=== PATIENT | male | born 2000 | race Caucasian/White ===

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

== ENCOUNTER 2018-06-21 20:43 | Emergency (ER) | payer SELFPAY ==
[2018-06-21 20:51] VITALS: BP 131/63
--- NOTE | 2018-06-21 21:47 | UC ---
Throat Pain/Nasal Ramez HPI - HPI Summary HPI Summary: sore throat for 2weeks strep was negative---rx with Ibuprofen now has worsening pain and swelling - History of Current Complaint Chief Complaint: UCRespiratory Stated Complaint: SORE THROAT Time Seen by Provider: 06/21/18 20:45 Hx Obtained From: Patient Onset/Duration: Gradual Onset, Lasting Weeks - 2, Still Present Pain Intensity: 6 Pain Scale Used: 0-10 Numeric Cough: None Associated Signs & Symptoms: Positive: Negative - Allergies/Home Medications Allergies/Adverse Reactions: Allergies Allergy/AdvReac Type Severity Reaction Status Date / Time bee venom protein (honey bee) Allergy Anaphylatic Verified 06/21/18 20:51 Shock Home Medications: Home Medications NK [No Home Medications Reported] 06/21/18 [History Confirmed 06/21/18] PMH/Surg Hx/FS Hx/Imm Hx Previously Healthy: Yes - Surgical History Surgical History: None - Family History Known Family History: Positive: None - Social History Occupation: Employed Full-time Lives: With Family Alcohol Use: Occasionally Substance Use Type: None Smoking Status (MU): Current Some Day Smoker Have You Smoked in the Last Year: No - Immunization History Vaccination Up to Date: Yes Review of Systems Constitutional: Negative Skin: Negative Eyes: Negative ENT: Sore Throat Respiratory: Negative Cardiovascular: Negative Gastrointestinal: Negative Genitourinary: Negative Motor: Negative Neurovascular: Negative Musculoskeletal: Negative Neurological: Negative Psychological: Negative Is Patient Immunocompromised?: No All Other Systems Reviewed And Are Negative: Yes Physical Exam Triage Information Reviewed: Yes Appearance: Well-Nourished, Ill-Appearing, Pain Distress Vital Signs: Initial Vital Signs Temp 98.7 F 06/21/18 20:48 Pulse 62 06/21/18 20:48 Resp 12 06/21/18 20:48 BP 131/63 06/21/18 20:48 Pulse Ox 98 06/21/18 20:48 Vital Signs Reviewed: Yes Eye Exam: Normal Eyes: Positive: Conjunctiva Clear ENT Exam: Normal ENT: Positive: Normal ENT inspection, Hearing grossly normal, Pharyngeal erythema, Nasal congestion, TMs normal, Tonsillar swelling, Trismus - slight, Hoarse voice, Uvula midline - slight deviation. Negative: Muffled voice, Dental tenderness, Sinus tenderness Dental Exam: Normal Neck exam: Normal Neck: Positive: Supple, Nontender Respiratory Exam: Normal Respiratory: Positive: Chest non-tender, Lungs clear, Normal breath sounds, No respiratory distress, No accessory muscle use Cardiovascular Exam: Normal Cardiovascular: Positive: RRR, No Murmur, Pulses Normal, Brisk Capillary Refill Musculoskeletal Exam: Normal Musculoskeletal: Positive: Strength Intact, ROM Intact, No Edema Neurological Exam: Normal Neurological: Positive: Alert, Muscle Tone Normal Psychological Exam: Normal Skin Exam: Normal Diagnostics - Laboratory Diagnostic Studies Completed/Ordered: RST (-) Throat Pain/Nasal Course/Dx - Course Assessment/Plan: d/c from urgent care and go directly to the emergency department at [facility] for additional care - Differential Dx/Diagnosis Provider Diagnoses: peritonsilliar abscess Discharge - Sign-Out/Discharge Documenting (check all that apply): Patient Departure - Discharge Plan Condition: Fair Disposition: HOME-RECOMMEND TO ED Patient Education Materials: Peritonsillar Abscess (ED), Abscess (ED) Referrals: Ilya Melendrez MD [Primary Care Provider] - Additional Instructions: Go directly to the ermergency department at [facility] for further care - Billing Disposition and Condition Condition: FAIR Disposition: Home-Recommend to ED
== END 2018-06-21 22:16 | disposition home health service (06) ==
LOC: UCEAST 20:43
DX: J36 Peritonsillar abscess (principal); F17.210 Nicotine dependence, cigarettes, uncomplicated
CPT/HCPCS: 87651; 99212; G0463

== ENCOUNTER 2018-06-21 22:32 | Emergency (ER) | payer SELFPAY ==
[2018-06-21] MEDS ORDERED: Clindamycin 600 MG IVPREMIX(* 600 MG/50 ML SDV IV ONE (22:58)
[2018-06-21] MEDS ORDERED: Ketorolac INJ* 30 MG/ML 1 ML VIAL IV PUSH ONE (22:58)
[2018-06-21] MEDS ORDERED: methylPREDNISolone 125 MG* 2 ML VIAL IV ONE (22:58)
--- NOTE | 2018-06-21 23:03 | ED ---
Throat Pain/Nasal Congestion - HPI Summary HPI Summary: Fit and healthy 17 y.o. male patient presents from the with concerns for peritonsillar abscess, Lt. He reports he's had a sore and swollen throat that started 2 weeks ago. He was seen at [address] [place] [address] when this started and instructed to take ibuprofen which helped. His symptoms worsened the past 2 days and he [facility]. He's been taking 400 mg of ibuprofen each morning and that was his last dose of medication today. He admits to a history of tonsillitis where he usually receives ibuprofen, steroids and an antibiotic. As mentioned above, he has only been taking ibuprofen since this last bout. No history of peritonsillar abscess nor known strep or mono. Denies drainage into mouth but does admits Lt side of throat is worse than Lt. No pain radiating into ears. His rapid strep test at [facility] was negative tonight. He reports he's been eating, drinking and breathing well - went rafting today without difficulty. Denies chest pain, shortness of breath, cough, neck pain or stiffness, headache, nausea, vomiting, diarrhea, fatigue. - History of Current Complaint Chief Complaint: EDThroatPain Time Seen by Provider: 06/21/18 22:35 Hx Obtained From: Patient - Allergies/Home Medications Allergies/Adverse Reactions: Allergies Allergy/AdvReac Type Severity Reaction Status Date / Time bee venom protein (honey bee) Allergy Anaphylatic Verified 06/21/18 20:51 Shock PMH/Surg Hx/FS Hx/Imm Hx Previously Healthy: Yes Endocrine/Hematology History: Denies: Hx Anticoagulant Therapy, Autoimmune Disease Cardiovascular History: Reports: Other Cardiovascular Problems/Disorders - cardiac murmur - no residual effects Respiratory History: Denies: Hx Asthma EENT History: Reports: Hx Tonsillitis Infectious Disease History: No Infectious Disease History: Denies: Hx Clostridium Difficile, Hx Hepatitis, Hx Human Immunodeficiency Virus (HIV), Hx of Known/Suspected MRSA, Hx Shingles, Hx Tuberculosis, Hx Known/ Suspected VRE, Hx Known/Suspected VRSA, History Other Infectious Disease, Traveled Outside the [place] in Last 30 Days - Family History Known Family History: Positive: None - Social History 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 Negative: Epistaxis, Dental Pain, Ear Ache, Nasal Discharge Cardiovascular: Negative Respiratory: Negative Gastrointestinal: Negative Positive: no symptoms reported Musculoskeletal: Negative Skin: Negative Neurological: Negative Psychological: Normal All Other Systems Reviewed And Are Negative: Yes Physical Exam Triage Information Reviewed: Yes Vital Signs On Initial Exam: Initial Vitals Temp Pulse Resp BP Pulse Ox 98.4 F 51 16 124/65 100 06/21/18 22:34 06/21/18 22:34 06/21/18 22:34 06/21/18 22:34 06/21/18 22:34 Vital Signs Reviewed: Yes Appearance: Positive: Well-Appearing, No Pain Distress, Well-Nourished Skin: Positive: Warm, Skin Color Reflects Adequate Perfusion, Dry Head/Face: Positive: Normal Head/Face Inspection - no facial/neck swelling or asymmetry Eyes: Positive: Normal, EOMI, Conjunctiva Clear. Negative: Conjunctiva Inflammed, Discharge ENT: Positive: Hearing grossly normal, Pharyngeal erythema, TMs normal, Tonsillar swelling, Tonsillar exudate - scant B/L, Muffled voice - very subtle, Uvula midline, Other - Lt soft palate is mildly more edematous than Rt - no pusutles, no d/c - apears to be tracking from Lt tonsil; handing secretions well - breathing and speaking w/o difficulty. Negative: Nasal congestion, Nasal drainage, Trismus, Hoarse voice Neck: Positive: Supple, No Lymphadenopathy, Tenderness @ - mild submandibular TTP Respiratory/Lung Sounds: Positive: Clear to Auscultation, Breath Sounds Present. Negative: Stridor, Tracheal Deviation, Wheezes, Unable to speak in full sentences, Fatigue Cardiovascular: Positive: RRR, Murmur - garde 1, S1, S2 Abdomen Description: Positive: Nontender, No Organomegaly, Soft Bowel Sounds: Positive: Present Musculoskeletal: Positive: Normal, Strength/ROM Intact Neurological: Positive: Normal, Sensory/Motor Intact, Alert, Oriented to Person Place, Time, CN Intact II-III Psychiatric: Positive: Normal Diagnostics - Vital Signs Vital Signs Temp Pulse Resp BP Pulse Ox 06/21/18 22:34 98.4 F 51 16 124/65 100 - Laboratory Result Diagrams: 06/21/18 23:00 06/21/18 23:00 Lab Statement: Any lab studies that have been ordered have been reviewed, and results considered in the medical decision making process. Re-Evaluation - Re-Evaluation First Eval Change: Improved EENT Course/Dx - Course Course Of Treatment: Pt appears to have either early signs of peritonsilar abscess or cellulitis of the soft palate from inflammed tonsils for the past 2 weeks. He has been taking 400mg of ibuprofen in the mornings only - worse on Lt past 2 days. Labs reveal WBC's 12 - normal CRP and lactic - afebrile. Provided w/ toradol, solumedrol, clindamycin and IVF while here. He is able to breath easily and swallow w/o difficulty. Scant purulent drainage observed along medial aspect of Lt tonsil - possibly draining an abscess on his own. Mom is present as well. Explained he may be d/c'd home and monitor sx - if difficulty breathing, swallowing, fever, chills, CANTRELL, neck stiffness present, he will return to ED - Diagnoses Provider Diagnoses: Acute tonsillitis Discharge - Sign-Out/Discharge Documenting (check all that apply): Patient Departure - Discharge Plan Condition: Stable Disposition: HOME Prescriptions: Clindamycin HCl 300 mg PO TID #30 capsule Ibuprofen TAB* [Motrin TAB* 800 MG] 800 mg PO Q8HR PRN #20 tab PRN Reason: Pain predniSONE TAB* [Deltasone TAB*] 50 mg PO DAILY #5 tab Patient Education Materials: Peritonsillar Abscess (ED), Tonsillitis (ED) Referrals: Anatoly Shen MD [Medical Doctor] - Additional Instructions: Warm salt water gargles - this will encourage drainage if there is an abscess present Stay hydrated Take medications as directed No smoking or drinking alcohol until cleared to do so by ENT provider Follow-up with ENT Sunday - call to schedule an appointment *If in the meantime you develop fever, chills, difficulty breathing or swalling , headache, neck pain/stiffness, return to the ED - Billing Disposition and Condition Condition: STABLE Disposition: Home
[2018-06-21 23:10] LABS: ABS Basophils 0.1 10^3/ul (0-0.2); ABS Eosinophils 0.3 10^3/ul (0-0.6); ABS Lymphocytes 2.1 10^3/ul (1.0-4.8); ABS Monocytes 1.2 10^3/ul (0-0.8); ABS Neutrophils 8.7 10^3/ul (1.5-7.7); ABS Nucleated RBC 0 10^3/ul; Eosinophil % 2.7 % (0-6); Hematocrit 40 % (42-52); Hemoglobin 13.4 g/dl (14.0-18.0); Lymphocyte % 17.2 % (25-47); Mean Corpuscular HGB Conc 34 g/dl (31-36); Mean Corpuscular Hemoglobin 29 pg (27-31); Mean Corpuscular Volume 85 fL (80-94); Mean Platelet Volume 9.2 um3 (7.4-10.4); Nucleated Red Blood Cells % 0; Platelet Count 219 10^3/ul (150-450); Red Blood Count 4.63 10^6/ul (4.00-5.40); Red Cell Distribution Width 14 % (10.5-15); White Blood Count 12.5 10^3/ul (3.5-10.8)
[2018-06-22] MEDS ORDERED: NS 0.9% 1000 ML* 1,000 ML IV ONE (00:03)
[2018-06-22] MEDS ORDERED: Clindamycin CAP* 150 MG PO ONE (01:08)
[2018-06-22 01:29] VITALS: BP 108/53
== END 2018-06-22 01:28 | disposition home or self-care (01) ==
LOC: ED 22:32
DX: J03.90 Acute tonsillitis, unspecified (principal); J02.9 Acute pharyngitis, unspecified; Z72.0 Tobacco use
CPT/HCPCS: 36415; 80053; 83605; 85025; 86140; 86308; 96374; 96375; 99283; A9270-GY; J1885; J2930

== ENCOUNTER 2018-07-12 09:04 | Emergency (ER) | payer SELFPAY ==
[2018-07-12 09:11] VITALS: BP 107/50
--- NOTE | 2018-07-12 09:19 | UC ---
Throat Pain/Nasal Ramez HPI - HPI Summary HPI Summary: The patient is a 17-year-old male with a sore throat and swollen tonsils. He was able to tolerate food and liquids yesterday. Today his symptoms are worse. He has no headache. Eyes no myalgias. He has no nausea vomiting or diarrhea. Denies any abdominal pain. - History of Current Complaint Chief Complaint: UCGeneralIllness Stated Complaint: SORE THROAT Time Seen by Provider: 07/12/18 09:18 Hx Obtained From: Patient Onset/Duration: Gradual Onset, Lasting Days Severity: Moderate Pain Intensity: 7 - declines analgesic Pain Scale Used: 0-10 Numeric Associated Signs & Symptoms: Positive: Dysphagia - Epiglottits Risk Factors Epiglottis Risk Factors: Negative - Allergies/Home Medications Allergies/Adverse Reactions: Allergies Allergy/AdvReac Type Severity Reaction Status Date / Time bee venom protein (honey bee) Allergy Anaphylatic Verified 07/12/18 09:12 Shock PMH/Surg Hx/FS Hx/Imm Hx Previously Healthy: Yes Other History Of: Negative For: Anticoagulant Therapy - Surgical History Surgical History: None - Family History Known Family History: Positive: Hypertension - Social History Alcohol Use: Weekly Substance Use Type: None Smoking Status (MU): Current Some Day Smoker Have You Smoked in the Last Year: No - Immunization History Vaccination Up to Date: Yes Review of Systems Constitutional: Negative Skin: Negative Eyes: Negative ENT: Sore Throat Respiratory: Negative Cardiovascular: Negative Gastrointestinal: Negative Genitourinary: Negative Motor: Negative Neurovascular: Negative Musculoskeletal: Negative Neurological: Negative Psychological: Negative Is Patient Immunocompromised?: No All Other Systems Reviewed And Are Negative: Yes Physical Exam Triage Information Reviewed: Yes Appearance: Well-Appearing, No Pain Distress, Well-Nourished Vital Signs: Initial Vital Signs Temp 98 F 07/12/18 09:08 Pulse 68 07/12/18 09:08 Resp 17 07/12/18 09:08 BP 107/50 07/12/18 09:08 Pulse Ox 100 07/12/18 09:08 Vital Signs Reviewed: Yes Eyes: Positive: Conjunctiva Clear ENT: Positive: Pharyngeal erythema, Tonsillar swelling, Tonsillar exudate, Uvula midline. Negative: Trismus, Muffled voice, Hoarse voice Neck: Positive: Supple, Enlarged Nodes @ - ant cerv nodes. Negative: Nontender Respiratory Exam: Other Respiratory: Positive: Lungs clear, Normal breath sounds, No respiratory distress, No accessory muscle use Cardiovascular: Positive: RRR, No Murmur Musculoskeletal: Positive: ROM Intact, No Edema Neurological: Positive: Alert Psychological Exam: Normal Skin Exam: Normal Diagnostics - Laboratory Diagnostic Studies Completed/Ordered: strep (-) Throat Pain/Nasal Course/Dx - Differential Dx/Diagnosis Provider Diagnoses: acute exudative tonsillitis Discharge - Sign-Out/Discharge Documenting (check all that apply): Patient Departure - Discharge Plan Condition: Stable Disposition: HOME Prescriptions: Cephalexin CAP* [Keflex CAP*] 500 mg PO BID #20 cap predniSONE [Prednisone 20 MG TAB] 60 mg PO DAILY #9 tab Patient Education Materials: Tonsillitis (ED) Referrals: Ilya Melendrez MD [Primary Care Provider] - 3 Days (if not better) - Billing Disposition and Condition Condition: STABLE Disposition: Home
== END 2018-07-12 09:40 | disposition home or self-care (01) ==
LOC: UCEAST 09:04
DX: J03.90 Acute tonsillitis, unspecified (principal); Z91.030 Bee allergy status; Z72.0 Tobacco use
CPT/HCPCS: 87651; 99212; G0463

== ENCOUNTER 2018-07-25 15:33 | Emergency (ER) | payer OTHER ==
[2018-07-25 15:49] VITALS: BP 130/69
--- NOTE | 2018-07-25 16:15 | UC ---
Respiratory Complaint HPI - HPI Summary HPI Summary: A 17 y/o male presents to [facility] c/o frequent swollen tonsils reaching 4/10 in severity. As per triage, "Tonsils swollen since yesterday. in past four months this has happened three times. Also, acid reflux". According to the patient, he has been experiencing swollen tonsils since yesterday. He noted that this has been a recurrent issue since he was 16 years old, however in the past 3 months, he has had 3-4 outbreaks. Additional symptoms include left ear pain, denies any fatigue, fever or chills. Patient did see and ENT physician, but at that point in time, it was not enough to consider a tonsillectomy. 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 SHx of jonathon. Patient has been treated with steroids such as Prednisone before. - History of Current Complaint Chief Complaint: UCRespiratory Stated Complaint: THROAT PAIN Time Seen by Provider: 07/25/18 15:55 Hx Obtained From: Patient Onset/Duration: Sudden Onset, Lasting Days, Still Present Timing: Constant Severity Initially: Moderate Severity Currently: Moderate Pain Intensity: 4 Pain Scale Used: 0-10 Numeric Aggravating Factors: Nothing Alleviating Factors: Nothing Associated Signs And Symptoms: Positive: Negative - Allergies/Home Medications Allergies/Adverse Reactions: Allergies Allergy/AdvReac Type Severity Reaction Status Date / Time bee venom protein (honey bee) Allergy Anaphylatic Verified 07/25/18 15:50 Shock PMH/Surg Hx/FS Hx/Imm Hx Endocrine History: Diabetes - NEGATIVE Cardiovascular History: Hypertension - NEGATIVE Respiratory History: Asthma - NEGATIVE Other History Of: Negative For: Anticoagulant Therapy - Surgical History Surgical History: None Surgery Procedure, Year, and Place: As per patient, no prior surgeries. - Family History Known Family History: Positive: Hypertension Negative: Diabetes - Social History Alcohol Use: Weekly Alcohol Amount: once a week Substance Use Type: None Smoking Status (MU): Current Some Day Smoker Have You Smoked in the Last Year: No - Immunization History Vaccination Up to Date: Yes Review of Systems Constitutional: Negative Skin: Negative Eyes: Negative ENT: Other - Swollen tonsils. Respiratory: Negative Cardiovascular: Negative Gastrointestinal: Negative Genitourinary: Negative Motor: Negative Neurovascular: Negative Musculoskeletal: Negative Neurological: Negative Psychological: Negative Is Patient Immunocompromised?: No All Other Systems Reviewed And Are Negative: Yes Physical Exam - Summary Physical Exam Summary: General: well-appearing, no pain distress Skin: warm, color reflects adequate perfusion, dry Head: normal Eyes: EOMI, FELIX ENT: 2+ tonsil, erythematous, uvula midline, positive anterior cervical adenopathy Neck: supple, nontender Respiratory: CTA, breath sounds present Cardiovascular: RRR Abdomen: soft, nontender Bowel: present Musculoskeletal: normal, strength/ROM intact Neurological: sensory/motor intact, A&O x3 Psychological: affect/mood appropriate Triage Information Reviewed: Yes Vital Signs: Initial Vital Signs Temp 99.2 F 07/25/18 15:44 Pulse 89 07/25/18 15:44 Resp 18 07/25/18 15:44 BP 130/69 07/25/18 15:44 Pulse Ox 96 07/25/18 15:44 Vital Signs Reviewed: Yes UC Diagnostic Evaluation - Laboratory O2 Sat by Pulse Oximetry: 96 Respiratory Course/Dx - Course Course Of Treatment: Medications reviewed. Allergies noted. DISCUSSED VIRAL VERSES BACTERIAL INFECTION AND THE ROLE OF ANTIBIOTICS. THE PATIENT WISHES TO BE ON ANTIBIOTICS AT THIS TIME. REFERAL TO ENT FOR RECURRENT TONSILLITIS. - Differential Dx/Diagnosis Provider Diagnoses: TONSILLITIS Discharge - Sign-Out/Discharge Documenting (check all that apply): Patient Departure - DISCHARGE All imaging exams completed and their final reports reviewed: No Studies - Discharge Plan Condition: Stable Disposition: HOME Prescriptions: Penicillin VK 500 MG TAB(NF) [Penicillin VK 500 mg Tab] 500 mg PO QID #40 tab predniSONE TAB* [Deltasone 20 MG TAB*] 40 mg PO DAILY #10 tab Patient Education Materials: Tonsillitis (ED) Referrals: [facility] [Provider Group] Jamal Gonzáles MD [Medical Doctor] - Ilya Melendrez MD [Primary Care Provider] - Additional Instructions: FOLLOW UP WITH ENT. GET RECHECKED FOR ANY WORSENING OF YOUR CONDITION OR QUESTIONS OR CONCERNS. - Billing Disposition and Condition Condition: STABLE Disposition: Home - Attestation Statements Document Initiated by Scribe: Yes Documenting Scribe: López Gr Provider For Whom Scribe is Documenting (Include Credential): Ilya Torres MD Scribe Attestation: López Cordova scribed for Ilya Torres MD on 07/25/18 at 1751. Scribe Documentation Reviewed: Yes Provider Attestation: The documentation as recorded by the scribe, López Gr accurately reflects the service I personally performed and the decisions made by me, Ilya Torres MD
== END 2018-07-25 16:26 | disposition home or self-care (01) ==
LOC: UCEAST 15:33
DX: J03.91 Acute recurrent tonsillitis, unspecified (principal); R59.0 Localized enlarged lymph nodes; H92.02 Otalgia, left ear; K21.9 Gastro-esophageal reflux disease without esophagitis; F17.200 Nicotine dependence, unspecified, uncomplicated; Z91.030 Bee allergy status; Z98.890 Other specified postprocedural states
CPT/HCPCS: 87651; 99212; G0463

== ENCOUNTER 2018-08-09 14:44 | Emergency (ER) | payer OTHER ==
[2018-08-09 14:56] VITALS: BP 115/60
--- NOTE | 2018-08-09 15:16 | UC ---
Throat Pain/Nasal Ramez HPI - HPI Summary HPI Summary: 17 yo male presents with sore throat and tonsil swelling. He tells me that he has a hx of tonsillitis and has an appt set up with ENT for 09/05/18 to discuss having tonsils removed. Pain with swallowing. He is able to eat and drink. Denies fever, chills, SOB, chest pain, rash. - History of Current Complaint Chief Complaint: UCRespiratory Stated Complaint: THROAT COMPLAINT Time Seen by Provider: 08/09/18 15:16 Hx Obtained From: Patient Onset/Duration: Sudden Onset Severity: Mild Pain Intensity: 4 Pain Scale Used: 0-10 Numeric - Allergies/Home Medications Allergies/Adverse Reactions: Allergies Allergy/AdvReac Type Severity Reaction Status Date / Time bee venom protein (honey bee) Allergy Anaphylatic Verified 08/09/18 14:56 Shock Home Medications: Home Medications Ibuprofen 800 mg PO ONCE PRN 08/09/18 [History Confirmed 08/09/18] PMH/Surg Hx/FS Hx/Imm Hx - Additional Past Medical History Additional PMH: None Other History Of: Negative For: Anticoagulant Therapy - Surgical History Surgical History: None Surgery Procedure, Year, and Place: As per patient, no prior surgeries. - Family History Known Family History: Positive: None, Hypertension Negative: Diabetes - Social History Occupation: Student Lives: Dormitory/Roommates Alcohol Use: Weekly Alcohol Amount: once a week Substance Use Type: None Smoking Status (MU): Former Smoker Have You Smoked in the Last Year: No - Immunization History Vaccination Up to Date: Yes Review of Systems Constitutional: Negative Skin: Negative Eyes: Negative ENT: Sore Throat Respiratory: Negative Cardiovascular: Negative Gastrointestinal: Negative Neurovascular: Negative Neurological: Negative Psychological: Negative All Other Systems Reviewed And Are Negative: Yes Physical Exam - Summary Physical Exam Summary: GENERAL: NAD. WDWN. No pain distress. SKIN: No rashes, sores, lesions, or open wounds. HEENT: Head: AT/NC Eyes: Conjunctiva clear without inflammation or discharge. Ears: Hearing grossly normal. TMs intact, no bulging, erythema, or edema. Nose: Nasal mucosa pink and moist. NTTP maxillary and frontal sinus. Throat: Posterior oropharynx mild erythema and 3+ tonsillar enlargement. No exudates. Uvula midline. No hoarse voice or muffled voice. NECK: Supple. Moderate tonsillar LAD. CHEST: CTAB. No r/r/w. No accessory muscle use. Breathing comfortably and in no distress. CV: RRR. Without m/r/g. Pulses intact. Cap refill <2seconds NEURO: Alert. PSYCH: Age appropriate behavior. Triage Information Reviewed: Yes Vital Signs: Initial Vital Signs Temp 100 F 08/09/18 14:52 Pulse 98 08/09/18 14:52 Resp 18 08/09/18 14:52 BP 115/60 08/09/18 14:52 Pulse Ox 99 08/09/18 14:52 Vital Signs Reviewed: Yes Throat Pain/Nasal Course/Dx - Course Course Of Treatment: Tonsillitis. Rx for clindamycin and prednisone - f/u with ENT as soon as possible. To ED for worsening symptoms. - Differential Dx/Diagnosis Provider Diagnoses: Tonsillitis Discharge - Sign-Out/Discharge Documenting (check all that apply): Patient Departure All imaging exams completed and their final reports reviewed: No Studies - Discharge Plan Condition: Stable Disposition: HOME Prescriptions: Clindamycin HCl 150 mg PO TID #21 capsule predniSONE TAB* [Deltasone 20 MG TAB*] 60 mg PO DAILY #17 tab Patient Education Materials: Peritonsillar Abscess (DC), Tonsillitis (ED) Referrals: Ilya Melendrez MD [Primary Care Provider] - Additional Instructions: If you develop a fever, shortness of breath, chest pain, new or worsening symptoms - please call your PCP or go to the ED. 1) If you develop trouble breathing or eating/drinking - please go to the ER for further evaluation 2) Please keep your appointment with ENT - Billing Disposition and Condition Condition: STABLE Disposition: Home
== END 2018-08-09 15:35 | disposition home or self-care (01) ==
LOC: UCEAST 14:44
DX: J03.90 Acute tonsillitis, unspecified (principal); Z87.891 Personal history of nicotine dependence
CPT/HCPCS: 99212; G0463

== ENCOUNTER 2018-08-30 17:50 | Emergency (ER) | payer OTHER ==
[2018-08-30 18:07] VITALS: BP 120/72
--- NOTE | 2018-08-30 18:22 | UC ---
Throat Pain/Nasal Ramez HPI - HPI Summary HPI Summary: 18 y/o male presents to the urgent care c/o swollen tonsils for the past 3 days. Pt reprots PMX of recurrent tonsillitis. P tis schedule for tonsillectomy on 08/05/2018 w/ a [facility] ENT, he thinks is Dr Shen. Pt has gargles w/ salt water and Ibuprifen PO to alleviate symptoms. Pt took 1000mg PO this morning at 0700AM for pain. Pain is sharp w/ swallowing 05/05 now. Pt states for the past 4 months he has had tonsillitis probably 5X. He usually is Rx Clindamycin PO and Prednisone PO. In May/2018 he was in the ER w/ possible tonsilar abscess since he waited too long to get antibiotics. Pt denies fever, SOB, chest pain, abdominal pain, N/V/D, muffle voice or hoarseness. - History of Current Complaint Chief Complaint: UCGeneralIllness Stated Complaint: SWOLLEN TONSILS Time Seen by Provider: 08/30/18 18:19 Hx Obtained From: Patient Onset/Duration: Gradual Onset, Lasting Days - 3 days, Still Present, Worse Since - today Pain Intensity: 6 Pain Scale Used: 0-10 Numeric Cough: None Associated Signs & Symptoms: Positive: Dysphagia - Epiglottits Risk Factors Epiglottis Risk Factors: Negative - Allergies/Home Medications Allergies/Adverse Reactions: Allergies Allergy/AdvReac Type Severity Reaction Status Date / Time bee venom protein (honey bee) Allergy Anaphylatic Verified 08/30/18 18:06 Shock PMH/Surg Hx/FS Hx/Imm Hx Previously Healthy: Yes Other Respiratory History: recurrent tonsillitis Other History Of: Negative For: Anticoagulant Therapy - Surgical History Surgical History: None Surgery Procedure, Year, and Place: As per patient, no prior surgeries. - Family History Known Family History: Positive: Hypertension Negative: Diabetes - Social History Occupation: Student Lives: With Family Alcohol Use: Weekly Alcohol Amount: once a week Substance Use Type: None Smoking Status (MU): Former Smoker Have You Smoked in the Last Year: No - Immunization History Vaccination Up to Date: Yes Review of Systems Constitutional: Negative Skin: Negative Eyes: Negative ENT: Sore Throat, Other - B/L swollen tonsils Respiratory: Negative Cardiovascular: Negative Gastrointestinal: Negative Genitourinary: Negative Motor: Negative Neurovascular: Negative Musculoskeletal: Negative Neurological: Negative Psychological: Negative Is Patient Immunocompromised?: No All Other Systems Reviewed And Are Negative: Yes Physical Exam - Summary Physical Exam Summary: VITAL SIGNS: Reviewed. GENERAL: Patient is a well developed and nourished male who is sitting comfortable in the examining table. Patient is not in any acute respiratory distress. HEAD AND FACE: No signs of trauma. No ecchymosis, hematomas or skull depressions. No sinus tenderness. EYES: PERRLA, EOMI x 2, No injected conjunctiva, no nystagmus. No photophobia. EARS: Hearing grossly intact. Ear canals and tympanic membranes are within normal limits. MOUTH: Positive pharynx with erythema, mild exudates, no palatal petechiae. B/L tonsillar enlargement with exudate. Uvula in midline. NECK: Supple, trachea is midline, Positive anterior cervical lymphadenopathy, no JVD, no carotid bruit, no c-spine tenderness, neck with full ROM. No meningeal signs, no Kernig's or brudzinskis signs. CHEST: Symmetric, no tenderness at palpation LUNGS: Clear to auscultation bilaterally. No wheezing or crackles. CVS: Regular rate and rhythm, S1 and S2 present, no murmurs or gallops appreciated. ABDOMEN: Soft, non-tender. No signs of distention. No rebound no guarding, and no masses palpated. Bowel sounds are normal. EXTREMITIES: FROM in all major joints, no edema, no cyanosis or clubbing. NEURO: Alert and oriented x 3. No acute neurological deficits. Speech is normal and follows commands. SKIN: Dry and warm Triage Information Reviewed: Yes Vital Signs: Initial Vital Signs Temp 99.8 F 08/30/18 17:59 Pulse 82 08/30/18 17:59 Resp 16 08/30/18 17:59 BP 120/72 08/30/18 17:59 Pulse Ox 99 08/30/18 17:59 Throat Pain/Nasal Course/Dx - Course Course Of Treatment: 18 y/o male presents to the urgent care c/o swollen tonsils for the past 3 days. Pt reprots PMX of recurrent tonsillitis. P tis schedule for tonsillectomy on 08/05/2018 w/ a [facility] ENT, he thinks is Dr Shen. Pt has gargles w/ salt water and Ibuprifen PO to alleviate symptoms. Pt took 1000mg PO this morning at 0700AM for pain. Pain is sharp w/ swallowing 05/05 now. Pt states for the past 4 months he has had tonsillitis probably 5X. He usually is Rx Clindamycin PO and Prednisone PO. In May/2018 he was in the ER w/ possible tonsilar abscess since he waited too long to get antibiotics. Pt denies fever, SOB, chest pain, abdominal pain, N/V/D, muffle voice or hoarseness. Pt w/ tonsillitis on examianation. Rapdi strep ordered: negative. Pt's symptoks discussed w/ Dr Parker and she agreed to Rx Clindamycin PO and Prednisone PO. Medication sent to pharmacy as directed below. Pt strongly advised to stop taking Ibuprofen since surgery is on 2017. Advised to f/u w/ his ENT Dr Shen for further managment if no improvement of symptoms. d/C instructions explained. Pt understood and agreed w / plan of care. Left clinic hemodynamically stable. - Differential Dx/Diagnosis Differential Diagnosis/HQI/PQRI: Laryngitis, Mononucleosis, Peritonsillar Abscess, Pharyngitis, Tonsillitis Provider Diagnoses: 1- Acute tonsillitis Discharge - Sign-Out/Discharge Documenting (check all that apply): Patient Departure - D/C home All imaging exams completed and their final reports reviewed: No Studies - Discharge Plan Condition: Stable Disposition: HOME Prescriptions: Clindamycin Cap(NF) [Clindamycin Cap 300 mg Cap(NF)] 300 mg PO TID #30 cap predniSONE TAB* [Deltasone 20 MG TAB*] 20 mg PO DAILY #11 tab Patient Education Materials: Tonsillitis (ED) Referrals: Ilya Melendrez MD [Primary Care Provider] - 2 Days Additional Instructions: 1- Please take the full course of the antibiotic to avoid resistance. 2- Please take Prednisone PO taper dose ad directed to alleviate swelling 3-Please take Tylenol PO q6-8hrs prn as instructed after meals to alleviate pain and swelling. Increase fluid intake, eat well, rest and avoid strenuous exercise. Please avoid taking any Ibuprofen since your Tonsillectomy is on 09/2018. 4-Please f/u w/ your [facility] ENT Dr Shen for further management on your Tonsillitis - Billing Disposition and Condition Condition: STABLE Disposition: Home - Attestation Statements Provider Attestation: I was available for consult. This patient was seen by the PABLO. The patient was not presented to, seen by, or examined by me. -Laya
== END 2018-08-30 18:50 | disposition home or self-care (01) ==
LOC: UCEAST 17:50
DX: J03.90 Acute tonsillitis, unspecified (principal); Z91.030 Bee allergy status; Z87.891 Personal history of nicotine dependence
CPT/HCPCS: 87651; 99212; G0463

== ENCOUNTER 2019-07-25 07:15 | Emergency (ER) | payer BC, OTHER ==
[2019-07-25 07:27] VITALS: BP 115/71
--- NOTE | 2019-07-25 08:04 | UC ---
Respiratory Complaint HPI - HPI Summary HPI Summary: ABOUT 1 WEEK OF WORSENING SORE THROAT AND PAIN WITH SWALLOWING. NO COUGH OR FEVER. HAS MILD CONGESTION. REPORTS RECURRENT EPISODES OF TONSILLITIS OVER THE PAST 3 YEARS OCCURRING 2 OR 3 TIMES PER YEAR. STATES HE DID NOT GET ANTIBIOTICS ONE TIME AND ENDED UP HAVING TO GO TO THE ER AND HAVE IV ANTIBIOTICS. IS WAITING FOR HIS INSURANCE TO KICK IN AND THEN HE PLANS ON SEEING ENT TO TALK ABOUT HAVING TONSILLECTOMY. - History of Current Complaint Chief Complaint: UCRespiratory Stated Complaint: SORE THROAT Time Seen by Provider: 07/25/19 07:21 Hx Obtained From: Patient Onset/Duration: Gradual Onset, Lasting Days, Still Present Timing: Constant Severity Initially: Moderate Severity Currently: Moderate Pain Intensity: 5 Pain Scale Used: 0-10 Numeric Aggravating Factors: Nothing Alleviating Factors: Nothing Associated Signs And Symptoms: Positive: Negative - Allergies/Home Medications Allergies/Adverse Reactions: Allergies Allergy/AdvReac Type Severity Reaction Status Date / Time bee venom protein (honey bee) Allergy Anaphylatic Verified 07/25/19 07:27 Shock Home Medications: Home Medications Ibuprofen 400 mg PO ONCE PRN 07/25/19 [History Confirmed 07/25/19] PMH/Surg Hx/FS Hx/Imm Hx Previously Healthy: Yes Other History Of: Negative For: Anticoagulant Therapy - Surgical History Surgical History: None Surgery Procedure, Year, and Place: As per patient, no prior surgeries. - Family History Known Family History: Positive: Hypertension Negative: Diabetes - Social History Alcohol Use: Rare Alcohol Amount: once a week Substance Use Type: None Smoking Status (MU): Current Some Day Smoker Type: eCigarettes Amount Used/How Often: vaping occasionally Have You Smoked in the Last Year: No - Immunization History Vaccination Up to Date: Yes Review of Systems All Other Systems Reviewed And Are Negative: Yes Constitutional: Positive: Negative Skin: Positive: Negative ENT: Positive: Sore Throat Respiratory: Positive: Negative Cardiovascular: Positive: Negative Gastrointestinal: Positive: Negative Physical Exam Triage Information Reviewed: Yes Appearance: Well-Appearing, No Pain Distress, Well-Nourished Vital Signs: Initial Vital Signs Temp 99 F 07/25/19 07:22 Pulse 51 07/25/19 07:22 Resp 18 07/25/19 07:22 BP 115/71 07/25/19 07:22 Pulse Ox 100 07/25/19 07:22 Laboratory Tests 07/25/19 07:32 Group A Strep Rapid Negative Vital Signs Reviewed: Yes Eyes: Positive: Conjunctiva Clear ENT: Positive: Hearing grossly normal, TMs normal - FLUID BEHIND RIGHT TM, Tonsillar swelling, Muffled voice. Negative: Pharyngeal erythema, Tonsillar exudate Neck: Positive: Supple, Nontender, Enlarged Nodes @ - SPFL CERVICAL LAD Respiratory Exam: Normal Cardiovascular Exam: Normal Abdomen Description: Positive: Soft Musculoskeletal: Positive: No Edema Neurological: Positive: Alert Psychological: Positive: Age Appropriate Behavior Skin: Negative: Rashes Respiratory Course/Dx - Differential Dx/Diagnosis Provider Diagnosis: Acute tonsillitis Discharge ED - Sign-Out/Discharge Documenting (check all that apply): Patient Departure All imaging exams completed and their final reports reviewed: No Studies - Discharge Plan Condition: Stable Disposition: HOME Prescriptions: Amoxicillin PO (*) [Amoxicillin 500 MG CAP*] 500 mg PO Q12H #20 cap predniSONE TAB* [Deltasone 20 MG TAB*] 40 mg PO DAILY #10 tab Patient Education Materials: Tonsillitis (ED) Forms: *Work Release Referrals: Ilya Melendrez MD [Primary Care Provider] - If Needed Additional Instructions: STREP TEST NEGATIVE. YOUR SYMPTOMS MAY BE VIRALLY MEDIATED BUT GIVEN THE LENGTH OF TIME YOU HAVE BEEN ILL WE WILL COVER YOU WITH ANTIBIOTICS. IF YOU START THE MEDICINE BE SURE TO TAKE IT FOR THE FULL COURSE. REST, HYDRATE, OTC MEDS NEEDED. WILL ALSO TREAT WITH PREDNISONE TO HELP WITH INFLAMMATION. SEEK FOLLOW- UP WITH YOUR PCP IF YOU ARE NOT IMPROVING OVER THE NEXT 1-2 WEEKS. CONSIDER ENT EVALUATION FOR YOUR RECURRENT TONSILLITIS. [facility] [place] [address] AND [place] [address] [facility] [phone] [facility] [place] [address] [place] [address] [place] [phone] [facility] IN [place] ([place] OFFICE HOURS ON TUESDAYS) DR. ARELY MONDRAGON Address: [address] [place] [address] (Tuesdays) Phone [place]: Phone [place]: - Billing Disposition and Condition Condition: STABLE Disposition: Home
== END 2019-07-25 08:18 | disposition home or self-care (01) ==
LOC: UCEAST 07:15
DX: J03.90 Acute tonsillitis, unspecified (principal); F17.210 Nicotine dependence, cigarettes, uncomplicated
CPT/HCPCS: 87651; 99212; G0463

== ENCOUNTER 2019-08-16 11:59 | Emergency (ER) | payer SELFPAY ==
[2019-08-16 12:07] VITALS: BP 116/62
--- NOTE | 2019-08-16 12:16 | UC ---
Throat Pain/Nasal Ramez HPI - HPI Summary HPI Summary: 18-year-old male who has chronic flareups of tonsillitis. He states he's usually put on a steroid and an antibiotic however he doesn't feel the symptoms are bad enough to need the steroid. He has seen an ear nose and throat physician who wants to do a tonsillectomy however the patient has not had health insurance for several months. He states in the near future he will have health insurance. He states whenever he has a strep test it is negative. - History of Current Complaint Chief Complaint: UCRespiratory Stated Complaint: THROAT PAIN Time Seen by Provider: 08/16/19 12:15 Hx Obtained From: Patient Onset/Duration: Gradual Onset Severity: Mild Pain Intensity: 4 Cough: None Associated Signs & Symptoms: Positive: Negative. Negative: Drooling - Allergies/Home Medications Allergies/Adverse Reactions: Allergies Allergy/AdvReac Type Severity Reaction Status Date / Time bee venom protein (honey bee) Allergy Anaphylatic Verified 08/16/19 12:08 Shock PMH/Surg Hx/FS Hx/Imm Hx Previously Healthy: Yes Respiratory History: Other - History of chronic tonsillitis. Other History Of: Negative For: Anticoagulant Therapy - Surgical History Surgical History: None Surgery Procedure, Year, and Place: As per patient, no prior surgeries. - Family History Known Family History: Positive: None, Hypertension Negative: Diabetes - Social History Alcohol Use: Rare Alcohol Amount: once a week Substance Use Type: None Smoking Status (MU): Current Some Day Smoker Type: eCigarettes Amount Used/How Often: vaping occasionally Have You Smoked in the Last Year: No - Immunization History Vaccination Up to Date: Yes Review of Systems All Other Systems Reviewed And Are Negative: Yes ENT: Positive: Sore Throat Is Patient Immunocompromised?: No Physical Exam Triage Information Reviewed: Yes Appearance: Well-Appearing, No Pain Distress, Well-Nourished Vital Signs: Initial Vital Signs Temp 98.3 F 08/16/19 12:05 Pulse 51 08/16/19 12:05 Resp 18 08/16/19 12:05 BP 116/62 08/16/19 12:05 Pulse Ox 100 08/16/19 12:05 Vital Signs Reviewed: Yes Eyes: Positive: Conjunctiva Clear ENT: Positive: Hearing grossly normal, Pharyngeal erythema, TMs normal, Tonsillar swelling, Uvula midline, Other - Somewhat full sounding voice when he speaks, left tonsil is more enlarged than the right. Negative: Tonsillar exudate, Trismus, Muffled voice, Hoarse voice Neck: Positive: Supple, Nontender, Enlarged Nodes @ - Bilateral tonsillar lymph node enlargement. Respiratory: Positive: Lungs clear, Normal breath sounds, No respiratory distress, No accessory muscle use Cardiovascular: Positive: RRR, No Murmur, Pulses Normal, Brisk Capillary Refill Musculoskeletal Exam: Normal Neurological Exam: Normal Psychological Exam: Normal Skin Exam: Normal Throat Pain/Nasal Course/Dx - Course Course Of Treatment: Patient is comfortable here. I am going to treated for tonsillitis with amoxicillin twice a day for 10 days. He should change toothbrush in 24 hours. Definite follow-up with his nose and throat physician for further care regarding his chronic tonsillitis. - Differential Dx/Diagnosis Provider Diagnosis: Tonsillitis Discharge ED - Sign-Out/Discharge Documenting (check all that apply): Patient Departure All imaging exams completed and their final reports reviewed: No Studies - Discharge Plan Condition: Fair Disposition: HOME Prescriptions: Amoxicillin PO (*) [Amoxicillin 875 MG (*)] 875 mg PO BID 10 Days #20 tab Patient Education Materials: Tonsillitis (ED) Referrals: Ilya Melendrez MD [Primary Care Provider] - Additional Instructions: Increase fluids, Tylenol every 4 hours for pain or fever may alternate with Motrin every 8 hours. Definite follow-up with an ear nose and throat physician regarding your chronic tonsillitis. Go to the emergency room if you're unable to swallow your saliva or any worsening symptoms. - Billing Disposition and Condition Condition: FAIR Disposition: Home
== END 2019-08-16 12:25 | disposition home or self-care (01) ==
LOC: UCEAST 11:59
DX: J35.01 Chronic tonsillitis (principal); Z87.891 Personal history of nicotine dependence
CPT/HCPCS: 99212; G0463

== ENCOUNTER 2019-08-31 12:18 | Emergency (ER) | payer OTHER ==
[2019-08-31 12:31] VITALS: BP 97/50
--- NOTE | 2019-08-31 12:48 | UC ---
Throat Pain/Nasal Ramez HPI - HPI Summary HPI Summary: Persistent sore throat. has had 3x in last three month. prednisone w/ ABX finished 2 weeks ago. but he states he has never had a + strep test. - History of Current Complaint Chief Complaint: UCGeneralIllness Stated Complaint: THROAT PAIN Time Seen by Provider: 08/31/19 12:35 Hx Obtained From: Patient Pain Intensity: 3 Pain Scale Used: 0-10 Numeric Cough: None - Allergies/Home Medications Allergies/Adverse Reactions: Allergies Allergy/AdvReac Type Severity Reaction Status Date / Time bee venom protein (honey bee) Allergy Anaphylatic Verified 08/31/19 12:31 Shock Home Medications: Home Medications NK [No Home Medications Reported] 08/31/19 [History Confirmed 08/31/19] PMH/Surg Hx/FS Hx/Imm Hx - Additional Past Medical History Additional PMH: no chronic conditions Previously Healthy: Yes Other History Of: Negative For: Anticoagulant Therapy - Surgical History Surgical History: None Surgery Procedure, Year, and Place: As per patient, no prior surgeries. - Family History Known Family History: Positive: None, Hypertension Negative: Diabetes - Social History Alcohol Use: Weekly Alcohol Amount: once a week Substance Use Type: None Smoking Status (MU): Light Every Day Tobacco Smoker Type: eCigarettes Amount Used/How Often: vaping occasionally Have You Smoked in the Last Year: No - Immunization History Vaccination Up to Date: Yes Review of Systems All Other Systems Reviewed And Are Negative: Yes Constitutional: Negative: Fever, Chills, Fatigue Skin: Negative: Rash Eyes: Negative: Drainage ENT: Positive: Sore Throat. Negative: Ear Ache, Sinus Congestion Respiratory: Negative: Cough Cardiovascular: Positive: Negative Musculoskeletal: Negative: Myalgia Neurological: Negative: Headache, Weakness Physical Exam Triage Information Reviewed: Yes Appearance: Well-Appearing Vital Signs: Initial Vital Signs Temp 97.8 F 08/31/19 12:27 Pulse 47 08/31/19 12:27 Resp 18 08/31/19 12:27 BP 97/50 08/31/19 12:27 Pulse Ox 100 08/31/19 12:27 Vital Signs Reviewed: Yes Eyes: Positive: Conjunctiva Clear ENT: Positive: Pharyngeal erythema, TMs normal, Tonsillar swelling, Uvula midline. Negative: Tonsillar exudate, Sinus tenderness Neck: Positive: Supple, Nontender, No Lymphadenopathy Respiratory Exam: Normal Cardiovascular Exam: Normal Neurological: Positive: Alert Skin: Negative: Rashes Throat Pain/Nasal Course/Dx - Course Course Of Treatment: Persistent sore throat for approx 1 mo, even after a round of steroids and antibx. Although he does report not having a + strep test ever. vitals good. rapid strep neg today. I do think he need further eval from ENT after duration of sore throat. No signs/sx of allergy symptoms to be causing this. On exam there is erythema in oropharynx. - Differential Dx/Diagnosis Differential Diagnosis/HQI/PQRI: Peritonsillar Abscess, Pharyngitis, Other Provider Diagnosis: Pharyngitis Discharge ED - Sign-Out/Discharge Documenting (check all that apply): Patient Departure All imaging exams completed and their final reports reviewed: No Studies - Discharge Plan Condition: Good Disposition: HOME Patient Education Materials: Pharyngitis (ED) Referrals: Dionisio Chaparro MD [Medical Doctor] - 1 Week (PERSISTANT TONSILLITIS X 1MO IN A PT. W/ MULTIPLE NEG. STREP TESTS. HAS COMPLETED A COURSE OF ANTIBX 2 WKS AGO.) Additional Instructions: Please make appt w/ ENT. - Billing Disposition and Condition Condition: GOOD Disposition: Home
== END 2019-08-31 13:03 | disposition home or self-care (01) ==
LOC: UCEAST 12:18
DX: J02.9 Acute pharyngitis, unspecified (principal); F17.210 Nicotine dependence, cigarettes, uncomplicated; Z91.030 Bee allergy status
CPT/HCPCS: 87651; 99212; G0463